=== PATIENT | male | born 1945 | race Caucasian/White ===

== ENCOUNTER → 2021-05-11 | Outpatient (CLI) | payer MEDICARE | LOC: COL.RAD 09:07 | DX: C61 Malignant neoplasm of prostate (principal) | CPT/HCPCS: A9503; Q9967 ==

== ENCOUNTER 2021-06-23 05:10 | Day surgery (SDC) | payer MEDICARE ==
[2021-06-23] VITALS (12 sets, daily range): BP systolic 94–140; BP diastolic 32–65; PULSE 64–77; TEMP 97.4–98.2
[~2021-06-23] VITALS: Ht 177.8 cm; Wt 76.4 kg
[2021-06-23] MEDS ORDERED: LOPID 600M600 MG/TAB PO (05:45)
[2021-06-23] MEDS ORDERED: KLOR-CON 1010 MEQ PO (05:46)
[2021-06-23] MEDS ORDERED: COZAAR100 MG PO (05:47)
[2021-06-23] MEDS ORDERED: HCTZ 25MG TAB25 MG PO (05:47)
[2021-06-23] MEDS ORDERED: NORVASC 5MG5 MG/TAB PO (05:47)
[2021-06-23] MEDS ORDERED: FISH OIL1000 MG PO (05:48)
[2021-06-23] MEDS ORDERED: IRON TABLETS325 MG PO (05:48)
[2021-06-23] MEDS ORDERED: ASPIRIN 81M81 MG/TA2 PO (05:49)
--- NOTE | 2021-06-23 11:35 | NUR ---
Patient received from OR from [facility], Patient to room 324. His family at bedside. He is alert, but seems slightly drowsy. Abdomen rounded, Robotic lap site x6. Open to air, edges well approximated. IVf as ordered. Ice water provided. Denies nausea. Mustafa to DD, he does reports some discomfort with mustafa. Scds ble. Will monitor.
--- NOTE | 2021-06-23 18:15 | NUR ---
Patient has done well post op. Sitting up in chair with his family at his side. Vss on room air now. Knutson to DD with adeuqate urine output, still slightly red tinged with sediment. He is tolerating clear liquids without nausea. IVF per orders. Scds. WIll report off to nightnurse
--- NOTE | 2021-06-24 00:29 | NUR ---
Received report from day shift. Patient alert and oriented x4. VSS. Patient here for robotic prostatectomy. Patient denies pain, states it is minimal and mostly sore. Surgical sites x6, CDI no drainage. Patient requested to walk in halls. Patient tolerated well. Assessment performed. PM meds administered. Patient encouraged to drink fluids. Patient in chair with call light near.
[2021-06-24 04:00] VITALS: BP 130/59; PULSE 65; TEMP 97.7
[2021-06-24 06:11] LABS: HEMOGLOBIN 10.8 g/dl (13.5-18.0)
[2021-06-24 06:12] LABS: HEMATOCRIT 31.9 % (42.0-52.0)
[2021-06-24 06:19] LABS: CALCIUM 8.4 mg/dL (8.4-10.2); CREATININE, serum 1.23 mg/dL (0.72-1.25); POTASSIUM 4.2 mmol/L (3.5-4.5)
[2021-06-24 08:00] VITALS: BP 133/66; PULSE 63; TEMP 98
--- NOTE | 2021-06-24 09:00 | NUR ---
Patient did well with general diet breakfast. Iv to Int. Knutson to DD with adequate, still slightly pinkish in color urine with sediment. Abdomen soft, rounded. bowels audible reports positive flatus. We ambulated the halls & he did well. Will monitor.
[2021-06-24 12:00] VITALS: BP 116/62; PULSE 66; TEMP 97.8
--- NOTE | 2021-06-24 12:18 | NUR ---
Patient resting in bed. Family at bedside. anticipating discharge today
--- NOTE | 2021-06-24 12:43 | NUR ---
Degreasing Wheel Operator offered prayer and support with patient while family was in room.
--- NOTE | 2021-06-24 14:00 | NUR ---
Patient ready for discharge. Dr. Olivares rounded. Orders obtained. Patient given all discharge education. We reviewed home meds list with last dose taken. Patient shown & demonstrated mustafa cath cares. He was shown leg bag and demonstrated. activity & diet restictions reviewed. Incisions cares & signs and symptoms to call doctor discussed. He has follow up appt scheduled. He and his family deny questions or concerns. He was ambulated out with all belongings, his & daughter taking him home.
== END 2021-06-24 15:21 | disposition home or self-care (01) ==
LOC: SDCO 05:10 → EDSTATUS 07:30 → SURG 07:30 → SDCO 07:30 → SURG 11:05 → SDCO 06-24 15:21
PROVIDERS: Urology
DX: C61 Malignant neoplasm of prostate (principal); I10 Essential (primary) hypertension; Z87.891 Personal history of nicotine dependence; Z79.82 Long term (current) use of aspirin
CPT/HCPCS: OP; A4314; A9284; J0690; J1100; J1885; J2405; J2704; J3010; J7120